=== PATIENT | female | born 2000 | race Caucasian/White ===

== ENCOUNTER → 2024-02-08 10:50 | Outpatient (CLI) | payer OTHER, SELFPAY ==
[2024-02-08 20:09] LABS: HIV 1 & 2 Ab/Ag 4th Gen Combo NEGATIVE (NEGATIVE); Hep C Virus Ab w/Reflex Quant NEGATIVE s/c (NEGATIVE); Hepatitis B Surface Antigen NEGATIVE s/c (NEGATIVE)
[2024-02-08 21:38] LABS: Urine N gonorrhoeae NOT DETECTED
[2024-02-08 21:43] LABS: Urine Chlamydia NOT DETECTED
[2024-02-10 02:36] LABS: RPR Screen Non Reactive (Non Reactive)
[2024-02-10 13:10] LABS: HSV 2 IGG AB < 0.91 index (0.00-0.90); HSV1IGG < 0.91 index (0.00-0.90)
== END ==
PROVIDERS: PCP Physician Assistant; Visit Provider Physician Assistant
DX: Z11.3 Encounter for screening for infections with a predominantly sexual mode of transmission (principal)
CPT/HCPCS: 86592; 86695; 86696; 86803; 87340; 87389; 87491; 87591